=== PATIENT | female | born 1955 | race Caucasian/White ===

== ENCOUNTER 2018-01-04 19:46 | Emergency (ER) | payer OTHER | END 2018-01-04 21:17 | disposition home or self-care (01) | LOC: E/R 19:46 | DX: J06.9 Acute upper respiratory infection, unspecified (principal); E11.9 Type 2 diabetes mellitus without complications; I10 Essential (primary) hypertension; Z79.84 Long term (current) use of oral hypoglycemic drugs | CPT/HCPCS: 99284; Z7502 ==

== ENCOUNTER 2018-02-25 20:35 | Emergency (ER) | payer OTHER ==
[2018-02-25 22:08] LABS: ADD MAN DIFF? NO
[2018-02-25 22:11] LABS: WHITE BLOOD COUNT 10.6 10^3/ul (4.8-10.8)
[2018-02-25 22:11] LABS: BASOPHIL # 0.1 10^3/ul (0.0-0.1); BASOPHILS % 0.8 % (0.0-2.0); EOSINOPHILS # 0.4 10^3/ul (0.0-0.5); EOSINOPHILS % 3.8 % (0.0-7.0); HEMATOCRIT 38.8 % (37.0-47.0); HEMOGLOBIN 12.7 g/dl (12.0-16.0); LYMPHOCYTES # 3.3 10^3/ul (0.8-2.9); LYMPHOCYTES % 31.7 % (15.0-51.0); MEAN CORPUSCULAR HEMOGLOBIN 28.6 pg (29.0-33.0); MEAN CORPUSCULAR HGB CONC 32.7 g/dl (32.0-37.0); MEAN CORPUSCULAR VOLUME 87.4 fl (82.0-101.0); MEAN PLATELET VOLUME 11.3 fl (7.4-10.4); MONOCYTE # 0.7 10^3/ul (0.3-0.9); MONOCYTES % 6.9 % (0.0-11.0); NEUTROPHILS % 56.5 % (39.0-77.0); PLATELET COUNT 267 10^3/UL (140-415); RED BLOOD COUNT 4.44 10^6/ul (4.20-5.40); RED CELL DISTRIBUTION WIDTH 13.8 % (11.5-14.5)
[2018-02-25 22:23] LABS: ADD UMIC YES; UR ASCORBIC ACID NEGATIVE (NEGATIVE); UR BACTERIA FEW /HPF (NONE SEEN); UR BILIRUBIN (Dip) NEGATIVE (NEGATIVE); UR BLOOD (Dip) 1+ mg/dL (NEGATIVE); UR CLARITY CLEAR (CLEAR); UR COLOR STRAW (YELLOW); UR GLUCOSE (Dip) NEGATIVE (NEGATIVE); UR KETONES (Dip) NEGATIVE (NEGATIVE); UR LEUKOCYTE ESTERASE (Dip) 2+ Leu/ul (NEGATIVE); UR NITRITE (Dip) NEGATIVE (NEGATIVE); UR RBC 1 /HPF (0-5); UR SPECIFIC GRAVITY (Dip) 1.011 (1.003-1.030); UR TOTAL PROTEIN (Dip) NEGATIVE (NEGATIVE); UR UROBILINOGEN (Dip) NEGATIVE (NEGATIVE); UR WBC 69 /HPF (0-5)
[2018-02-25 22:26] LABS: INR 0.99; PROTIME 13.2 Sec (11.9-14.9)
[2018-02-25 22:27] LABS: PARTIAL THROMBOPLASTIN TIME 29.1 Sec (25.0-35.0)
[2018-02-25 22:29] LABS: ALANINE AMINOTRANSFERASE 28 IU/L (13-69); ALBUMIN 4.2 g/dl (3.3-4.9); ALBUMIN/GLOBULIN RATIO 1.05; ALKALINE PHOSPHATASE 108 IU/L (42-121); AMYLASE 97 U/L (11-123); ANION GAP 16 (8-16); ASPARTATE AMINO TRANSFERASE 25 IU/L (15-46); BILIRUBIN,INDIRECT 0.2 mg/dl (0-1.1); BILIRUBIN,TOTAL 0.2 mg/dl (0.2-1.3); BLOOD UREA NITROGEN 16 mg/dl (7-20); CARBON DIOXIDE 27 mmol/L (21-31); CHLORIDE 102 mmol/L (97-110); CREATININE 0.65 mg/dl (0.44-1.00); GLUCOSE 161 mg/dl (70-220); LIPASE 78 U/L (23-300); POTASSIUM 3.9 mmol/L (3.5-5.1); SODIUM 141 mmol/L (135-144); TOTAL PROTEIN 8.2 g/dl (6.1-8.1)
[2018-02-25 23:06] LABS: TROPONIN-I < 0.012 ng/ml (0.00-0.12)
== END 2018-02-26 01:03 | disposition home or self-care (01) ==
LOC: FTE 02-26 01:03
DX: K74.60 Unspecified cirrhosis of liver (principal); N39.0 Urinary tract infection, site not specified; R10.9 Unspecified abdominal pain; I10 Essential (primary) hypertension; E11.9 Type 2 diabetes mellitus without complications; Z79.84 Long term (current) use of oral hypoglycemic drugs
CPT/HCPCS: 74176; 80053; 81001; 82150; 83690; 84484; 85025; 85610; 85730; 87086; 93005; 99285-25

== ENCOUNTER 2018-06-11 09:16 | Day surgery (SDC) | payer OTHER ==
[2018-06-11] MEDS ORDERED: PROPOFOL 40 ML (12:08)
[2018-06-11] MEDS ORDERED: LIDOCAINE 100 MG SYRINGE (12:08)
[2018-06-11] MEDS ORDERED: FENTAnyl 50 MCG/ML VIAL (12:10)
== END 2018-06-11 14:31 | disposition home or self-care (01) ==
LOC: GIL 09:16
DX: Z12.11 Encounter for screening for malignant neoplasm of colon (principal); K21.9 Gastro-esophageal reflux disease without esophagitis; K29.50 Unspecified chronic gastritis without bleeding; K64.8 Other hemorrhoids; E11.9 Type 2 diabetes mellitus without complications; I10 Essential (primary) hypertension; E78.5 Hyperlipidemia, unspecified; E66.9 Obesity, unspecified; Z68.37 Body mass index [BMI] 37.0-37.9, adult
CPT/HCPCS: 43239; 82962; 88305; 88312